=== PATIENT | male | born 1950 | race Caucasian/White ===

== ENCOUNTER → 2018-12-11 | Outpatient (CLI) | payer MEDICARE | END | disposition home or self-care (01) | LOC: CFH 07:41 | PROVIDERS: ATTEND Family Medicine | DX: R00.1 Bradycardia, unspecified (principal); Z98.61 Coronary angioplasty status | CPT/HCPCS: 78452; 93017; A9502 ==

== ENCOUNTER 2019-01-09 10:19 | Day surgery (SDC) | payer MEDICARE ==
[~2019-01-09] VITALS: Ht 170.2 cm; Wt 87.0 kg
[2019-01-09 11:15] VITALS: BP 128/79
[2019-01-09] MEDS ORDERED: METO25TA91 PO (11:22)
[2019-01-09] MEDS ORDERED: AMLO-150 PO (11:22)
[2019-01-09] MEDS ORDERED: SITA1TAB5 PO (11:22)
[2019-01-09] MEDS ORDERED: SPIR25TA5 PO (11:22)
[2019-01-09] MEDS ORDERED: LISI-170 PO (11:22)
[2019-01-09] MEDS ORDERED: MIDAZOLAM 1 MG/ML, 2ML ONE ×2 (11:45→12:01)
[2019-01-09] MEDS ORDERED: DIPHENHYDRAMINE 50 MG/ML, 1ML ONE (11:45)
[2019-01-09] MEDS ORDERED: LIDOCAINE 1%, 20ML ONE (11:45)
[2019-01-09] MEDS ORDERED: MIDAZOLAM 1 MG/ML, 5ML ONE (12:24)
[2019-01-09] MEDS ORDERED: BIVALIRUDIN 250 MG ONE (12:50)
[2019-01-09] MEDS ORDERED: PRASUGREL 10 MG TABLET ONE (12:50)
[2019-01-09] MEDS ORDERED: HEPARIN 1,000 UNITS/ML, 10ML ONE (12:58)
[2019-01-09] MEDS ORDERED: SODIUM CHLORIDE 0.9% 1,000 ML IV SCH (13:13)
== END 2019-01-09 16:41 | disposition home or self-care (01) ==
LOC: CACL 10:19
PROVIDERS: ATTEND Internal Medicine Cardiovascular Disease
DX: I25.10 Atherosclerotic heart disease of native coronary artery without angina pectoris (principal); I10 Essential (primary) hypertension; E78.5 Hyperlipidemia, unspecified; E11.9 Type 2 diabetes mellitus without complications; Z72.89 Other problems related to lifestyle; Z98.890 Other specified postprocedural states; Z87.442 Personal history of urinary calculi; Z98.61 Coronary angioplasty status; Z79.84 Long term (current) use of oral hypoglycemic drugs
CPT/HCPCS: 93458; 93571; 99156; 99157; C1760; C1769; C1887; C1894; J1200; J1644; J2250; Q9967; J0583

== ENCOUNTER → 2019-01-17 | Outpatient (CLI) | payer MEDICARE ==
[~2019-01-17] MED LIST: AMLO-150 PO; LISI-170 PO; METO25TA91 PO; SITA1TAB5 PO; SPIR25TA5 PO
== END | disposition home or self-care (01) ==
LOC: CVU 07:30
PROVIDERS: ATTEND Family Medicine
DX: I25.10 Atherosclerotic heart disease of native coronary artery without angina pectoris (principal); Z95.0 Presence of cardiac pacemaker; I10 Essential (primary) hypertension; E78.5 Hyperlipidemia, unspecified; E11.9 Type 2 diabetes mellitus without complications; I77.811 Abdominal aortic ectasia; I70.0 Atherosclerosis of aorta; I70.8 Atherosclerosis of other arteries
CPT/HCPCS: 93978